=== PATIENT | male | born 1975 | race Caucasian/White ===

== ENCOUNTER 2016-07-23 19:54 | Emergency (ER) | payer OTHER ==
[~2016-07-23 19:54] MED LIST: ADDERALL30 MG PO; BACTRIM DS1 TAB PO; BACTRIM1 TAB PO; CEPHALEXIN500 MG PO; LEVEMIR FL100 UNIT/M SC; NOVOLOG PE100 UNITS/ SC; PERCOCET1 TA1 PO; TESTOSTERON200 MG/M1
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
--- NOTE | 2016-07-23 20:29 | ED CLINICAL REPORT ---
Clinical Report - Physicians/Mid Levels [facility] [address] [place] [address] 07/23/2016 19:56 Patient: JOSE DUMONT SR Time Seen: 20:18. Arrived- By private vehicle. Historian- patient. SOCIAL HISTORY Regular alcohol use. Last drink was 4 hours ago. PROGRESS AND PROCEDURES Course of Care: I went to see the patient and he left the hospital without being seen. (Electronically signed by Fidel Butler MD 07/23/2016 20:29)
--- NOTE | 2016-07-23 20:29 | ED CLINICAL REPORT ---
Clinical Report - Physicians/Mid Levels [facility] [address] [place] [address] 07/23/2016 19:56 Patient: JOSE DUMONT SR Time Seen: 20:18. Arrived- By private vehicle. Historian- patient. SOCIAL HISTORY Regular alcohol use. Last drink was 4 hours ago. PROGRESS AND PROCEDURES Course of Care: I went to see the patient and he left the hospital without being seen. (Electronically signed by Fidel Butler MD 07/23/2016 20:29)
--- NOTE | 2016-07-23 20:31 | ED MAR SUMMARY ---
..... Medication Administration Record [facility] [address] [place] [id number] Patient: JOSE DUMONT Visit ID: [id number] 41y, M Weight: 82.5 kg Height/Length: 67 in BMI: 28.5 ALLERGIES: Tramadol
--- NOTE | 2016-07-23 20:31 | ED MAR SUMMARY ---
..... Medication Administration Record [facility] [address] [place], [place] [id number] Patient: JOSE DUMONT Visit ID: [id number] 41y, M Weight: 82.5 kg Height/Length: 67 in BMI: 28.5 ALLERGIES: Tramadol
--- NOTE | 2016-07-23 20:31 | ED MED RECONCILIATION SUMMARY ---
Patient: JOSE DUMONT SR Medication Reconciliation Report [facility] VisitID: [id number] [address] [place] [address] 41y, M Registration Date/Time: 07/23/2016 Weight: 82.5 kg Height/Length: 67 in. BMI: 28.5 ALLERGIES: Tramadol The patient's Home Medications are listed below: THE FOLLOWING MEDICATIONS NEED TO BE RECONCILED: Adderall Oral (30 mg), 3x a day Glipizide Oral MetFORMIN HCl Oral The source(s) of the original Home Medication information: Not obtained. The following Medications were given to the patient in the Emergency Department: None. The following Medications were prescribed to the patient: None.
--- NOTE | 2016-07-23 20:31 | ED MED RECONCILIATION SUMMARY ---
Patient: JOSE DUMONT SR Medication Reconciliation Report [facility] VisitID: [id number] [address] [place] [address] 41y, M Registration Date/Time: 07/23/2016 Weight: 82.5 kg Height/Length: 67 in. BMI: 28.5 ALLERGIES: Tramadol The patient's Home Medications are listed below: THE FOLLOWING MEDICATIONS NEED TO BE RECONCILED: Adderall Oral (30 mg), 3x a day Glipizide Oral MetFORMIN HCl Oral The source(s) of the original Home Medication information: Not obtained. The following Medications were given to the patient in the Emergency Department: None. The following Medications were prescribed to the patient: None.
== END 2016-07-23 20:20 | disposition left against medical advice (07) ==
LOC: ED SRH 19:54
DX: Z53.21 Procedure and treatment not carried out due to patient leaving prior to being seen by health care provider (principal)